=== PATIENT | female | born 1935 | race Caucasian/White ===

== ENCOUNTER 2023-06-08 18:40 | Emergency (ER) | payer MEDICARE, SELFPAY ==
[2023-06-08 18:46] VITALS: BP 166/82
[2023-06-08] MEDS: TYLENOL 650 MG PO ×2 (19:44→23:51)
--- NOTE | 2023-06-08 23:21 | ED.GENMED ---
History of Present Illness
General
Chief Complaint: Cold/Flu/URI Symptoms
Source: patient and family
Exam Limitations: none
Time Seen by Provider: 06/08/23 22:57
Nursing documentation reviewed up to this point in time: agreed with
Travel History
Have you had any contact with someone who has COVID-19?: No
Do you have any symptoms of coronavirus? Fever > 100 degrees, chills, cough, shortness of breath, sore throat, loss of taste or smell, muscle aches, or headache?: No
History of Present Illness
History of Present Illness:
87-year-old female presents to the emergency department due to cough and right ear pain. Symptoms ongoing for about 5 days. She was prescribed prednisone, but thought it was giving her headache. She was also prescribed Z-Can.
Past History
Past History
ED Past Medical History: NIDDM
Social History
Tobacco: Non-smoker
Alcohol: None
Drug: None
Review of Systems
Review of Systems
Allergies reviewed?: Yes
All Other Systems: Not applicable
Constitutional: Reports no symptoms; Denies fever
EENT: Reports runny nose and other (Right ear pain)
Respiratory: Reports cough
Cardiac: Reports no symptoms
ABD/GI: Reports no symptoms
: Reports no symptoms
Musculoskeletal: Reports no symptoms
Skin: Reports no symptoms
Neurological: Reports no symptoms
Endocrine: Reports no symptoms
Hematologic/Lymphatic: Reports no symptoms
Psychiatric: Reports no symptoms
Phy Exam
Physical Exam
Physical Exam:
Physical Exam
General: no apparent distress, not acutely ill
Neck: supple. no meningeal signs. normal posterior pharynx
Heart: s1/s2 regular rate and rhythm, no murmur. equal radial
pulses.
HEENT: Pupils equal round reactive to light, EOMI, TM ward, but somewhat obscured by cerumen
Lungs: no acute respiratory distress. Wheezing bilaterally
Abdomen: normal bowel sounds. not tender. no CVAT
Neuro: alert and oriented. no focal neurological deficits cranial nerves II through XII intact
Skin: no rash
Psychiatric: well kept. interactive and cooperative
Extremities: no edema. no calf tenderness. negative homans. good distal pulses
Course
Orders/Labs/Results
Orders:
Orders
06/08/23 19:39
Acetaminophen [Tylenol] 650 mg .ROUTE .STK-MED ONE
06/08/23 19:44
Acetaminophen [Tylenol] 650 mg PO NOW STA
06/08/23 23:19
Acetaminophen [Tylenol] 650 mg PO NOW STA
Ipratropium/Albuterol Sulfate [Duoneb] 3 ml INH R NOW STA
06/08/23 23:20
CT Head W/o Iv Contrast Urgent
Comment:
Reason For Exam: right ear/head pain
CR Chest - 2 Views Urgent
Comment:
Reason For Exam: wheezing, cough
Vital Signs
Initial and Last Documented VS:
Initial Vital Signs
Temp Pulse Resp BP Pulse Ox
98.9 F 71 16 166/82 100
06/08/23 18:46 06/08/23 18:46 06/08/23 18:46 06/08/23 18:46 06/08/23 18:46
Last Documented Vital Signs
Temp Pulse Resp BP Pulse Ox
98.9 F 71 16 166/82 100
06/08/23 18:46 06/08/23 18:46 06/08/23 18:46 06/08/23 18:46 06/08/23 22:18
MDM/Problems Addressed
Differential Diagnosis Includes:
Pneumonia, intracranial tumor, otitis
MDM/Problems Addressed:
87-year-old female with sinusitis, no signs of ear infection, bronchitis. Will treat with doxycycline. Follow-up with primary care and ENT. Also will have patient finish prescription for prednisone.
Chronic conditions affecting care: DM
*Radiology
Radiology exam reviewed: preliminary read by ED provider (cxr nad) and radiology read reviewed (ct head nad)
*Pulse Oximetry
Patient hypoxic: no
*EKG
Interpreted by ED Provider?: NA
*Paint Specialist Interpretation
Rate: Paint Specialist- N/A
*Critical Care Note
Total Time (30-74mins, 75-104mins- exclusive of procedures): Not Applicable
Patient Management
Social determinants of health affecting care: Living situation and Strong social support
Escalation/DeEscalation of care consider admission/obs:
admit not indicated
ED Attending Note
-
Portions of this chart may have been created with voice recognition software.� Occasional wrong word or��sound alike� substitutions may have occurred due to the inherent limitations of voice recognition software.
Discharge Plan
Departure
Patient Disposition: Home (Routine Discharge)
Date of Disposition: 06/09/23
Time of Disposition: 00:29
Patient with high blood pressure during this ER visit?: Yes
Condition: Good
Discharge Problem:
Acute bronchitis, Acute sinusitis
Instructions: Acute Bronchitis, Adult (DC), Sinusitis, Adult ED, BLOOD PRESSURE
Prescriptions:
New
doxycycline hyclate 100 mg capsule
100 mg PO BID Qty: 20 0RF
Referrals:
Saroj Joel MD [Family Provider] - Call in 1-3 days for appt
Activity Restrictions/Additional Instructions:
Follow up with your ENT in 3-5 days. Return for any concerns. Finish prednisone rx.
Interventions
Interventions:
*Risk Screen - Suicide Last Done: 06/08/23 18:42
*General Assessment Last Done: 06/08/23 18:42
*Neglect/Abuse Screening Last Done: 06/08/23 18:42
ED- Fall Risk Assessment Last Done: 06/08/23 22:18
*ED COVID-19 Vaccine History Last Done: 06/08/23 22:18
ED- Pulmonary Assessment Last Done: 06/08/23 22:18
Discharge Date and Time
Print Language: MALAY
[2023-06-08] MEDS: DUONEB 3 ML INH (23:54)
[2023-06-09 00:10] VITALS: BP 153/69
== END 2023-06-09 01:10 | disposition home or self-care (01) ==
LOC: EMR 18:40
PROVIDERS: EMERGENCY PHYSICIAN Emergency Medicine; FAMILY PHYSICIAN Internal Medicine
DX: J20.9 Acute bronchitis, unspecified (principal); J01.90 Acute sinusitis, unspecified; H92.01 Otalgia, right ear; R03.0 Elevated blood-pressure reading, without diagnosis of hypertension; E11.9 Type 2 diabetes mellitus without complications; Z79.84 Long term (current) use of oral hypoglycemic drugs; Z88.1 Allergy status to other antibiotic agents; Z88.0 Allergy status to penicillin; Z88.2 Allergy status to sulfonamides; Z88.8 Allergy status to other drugs, medicaments and biological substances
CPT/HCPCS: 99284; 94640; 70450; 71046